=== PATIENT | male | born 1945 | race Caucasian/White ===

== ENCOUNTER 2016-08-31 22:37 | Emergency (ER) | payer OTHER | END 2016-09-01 01:26 | disposition home or self-care (01) | LOC: ER 22:37 | DX: R41.0 Disorientation, unspecified (principal); Z79.899 Other long term (current) drug therapy; N18.4 Chronic kidney disease, stage 4 (severe) | CPT/HCPCS: 36415 ==

== ENCOUNTER 2016-11-02 17:03 | Emergency (ER) | payer OTHER | END 2016-11-02 17:59 | disposition home or self-care (01) | LOC: ER 17:03 | DX: T83.031A Leakage of indwelling urethral catheter, initial encounter (principal); I25.10 Atherosclerotic heart disease of native coronary artery without angina pectoris; E11.22 Type 2 diabetes mellitus with diabetic chronic kidney disease; N18.4 Chronic kidney disease, stage 4 (severe); Z86.73 Personal history of transient ischemic attack (TIA), and cerebral infarction without residual deficits; Z79.899 Other long term (current) drug therapy ==

== ENCOUNTER 2016-11-26 11:53 | Emergency (ER) | payer OTHER | END 2016-11-26 14:45 | disposition home or self-care (01) | LOC: ER 11:53 | DX: T83.518A Infection and inflammatory reaction due to other urinary catheter, initial encounter (principal); E11.22 Type 2 diabetes mellitus with diabetic chronic kidney disease; N18.4 Chronic kidney disease, stage 4 (severe); I25.2 Old myocardial infarction; Z79.899 Other long term (current) drug therapy; Z86.73 Personal history of transient ischemic attack (TIA), and cerebral infarction without residual deficits; Z87.442 Personal history of urinary calculi | CPT/HCPCS: 36415 ==

== ENCOUNTER → 2016-12-04 | Day surgery (SDC) | payer OTHER | END | disposition home or self-care (01) | LOC: SDC 09:23 | DX: N30.20 Other chronic cystitis without hematuria (principal); N31.9 Neuromuscular dysfunction of bladder, unspecified; N40.1 Benign prostatic hyperplasia with lower urinary tract symptoms; N39.41 Urge incontinence; F03.90 Unspecified dementia, unspecified severity, without behavioral disturbance, psychotic disturbance, mood disturbance, and anxiety; I50.9 Heart failure, unspecified; I25.2 Old myocardial infarction; M19.90 Unspecified osteoarthritis, unspecified site; I10 Essential (primary) hypertension; E11.9 Type 2 diabetes mellitus without complications; G89.29 Other chronic pain; I25.119 Atherosclerotic heart disease of native coronary artery with unspecified angina pectoris; Z87.442 Personal history of urinary calculi; Z79.899 Other long term (current) drug therapy; Z95.5 Presence of coronary angioplasty implant and graft | CPT/HCPCS: C1758; J0585; J2704; Q9967 ==